=== PATIENT | female | born 1955 | race Hispanic/Latino ===

== ENCOUNTER 2018-03-08 08:28 | Outpatient (CLI) | payer MEDICAID | END 2018-03-08 08:29 | disposition home or self-care (01) | LOC: RAD 08:28 ==

== ENCOUNTER 2018-04-26 08:25 | Outpatient (CLI) | payer MEDICAID | END 2018-04-26 08:26 | disposition home or self-care (01) | LOC: RAD 08:25 | DX: N13.30 Unspecified hydronephrosis (principal) ==

== ENCOUNTER 2018-06-15 07:29 | Outpatient (CLI) | payer MEDICAID | END 2018-06-15 07:30 | disposition home or self-care (01) | LOC: RAD 07:29 ==